=== PATIENT | male | born 1955 | race Caucasian/White ===

== ENCOUNTER 2016-08-27 18:21 | Emergency (ER) | payer OTHER ==
[2016-08-27 19:49] LABS: HEMOGLOBIN 14.6 gm/dl (14.0-17.5); RED BLOOD COUNT 4.5 M/UL (4.20-5.50); WHITE BLOOD COUNT 7.7 K/UL (4.5-11.0)
[2016-08-27 20:05] LABS: BUN/CREATININE RATIO 10 (0-10)
== END 2016-08-27 20:35 | disposition home or self-care (01) ==
LOC: ER1 18:21
PROVIDERS: Emergency Medicine
DX: S06.9X9A Unspecified intracranial injury with loss of consciousness of unspecified duration, initial encounter (principal); G83.21 Monoplegia of upper limb affecting right dominant side; I10 Essential (primary) hypertension; E11.9 Type 2 diabetes mellitus without complications; Z90.49 Acquired absence of other specified parts of digestive tract; W18.09XA Striking against other object with subsequent fall, initial encounter; Z88.5 Allergy status to narcotic agent
CPT/HCPCS: 36415; 70450; 71010; 72125; 72128; 72131; 80053; 83690; 85025; 85610; 85730; 93005; 99285

== ENCOUNTER → 2020-06-17 | Outpatient (CLI) | payer OTHER | LOC: KOH-I 09:08 | DX: N20.0 Calculus of kidney (principal) | CPT/HCPCS: 74018 ==

== ENCOUNTER → 2021-07-24 | Outpatient (CLI) | payer OTHER | LOC: KOH-I 08:47 | DX: N20.0 Calculus of kidney (principal) | CPT/HCPCS: 74018 ==